=== PATIENT | male | born 1965 | race Caucasian/White ===

== ENCOUNTER → 2019-04-08 16:28 | Outpatient (CLI) | payer OTHER, SELFPAY ==
--- NOTE | ~2019-04-08 | XR_ITS ---
EXAMINATION: XR knee RT min 4V EXAM DATE: 04/08/2019 17:11 INDICATION: Right knee pain since fall one month ago. Initial encounter. TECHNIQUE: Right knee frontal, crosstable lateral, orthogonal oblique projections for interpretation . There is no prior study for comparison. FINDINGS: No evidence osteochondral defect or joint body in the right knee joint. There is mild tri compartmental primary osteoarthritis. Thigh varicose vein medially, probably the greater saphenous v ein, and another dilated vein along the lateral aspect of the calf. There are no acute fractures or d islocations identified. There is no subcutaneous gas. There are no radiopaque foreign bodies. IMPRESSION: 1. Mild right knee osteoarthritis. 2. Varicosities. Reviewed, dictated and finalized at location A. STORAGE WORKER
--- NOTE | ~2019-04-08 | XR_ITS ---
EXAMINATION: XR lumbar spine 2-3V EXAM DATE: 04/08/2019 17:11 INDICATION: Low back pain. Fall one month ago. TECHNIQUE: Lumber spine frontal, lateral, lateral L5-S1 projections for interpretation. There is no prior study for comparison. FINDINGS: Mild to moderate disc disease at L3-4 and L4-5, mild at L5-S1. There is mild lumbar facet arthropathy. Paraspinal soft tissue is unremarkable. Sacrum, sacroiliac joints, sacral arcuate lines are intact. IMPRESSION: Mild to moderate mid lumbar disc disease, mild lumbar facet arthropathy. Reviewed, dictated and finalized at location A. [employer]ER IMPRESSION: Mild to moderate mid lumbar disc disease, mild lumbar facet arthro kelly.
== END ==
LOC: EXPCRAD 16:33
PROVIDERS: PCP Emergency Medicine; Visit Provider Emergency Medicine
DX: G89.29 Other chronic pain (principal); M51.36 Other intervertebral disc degeneration, lumbar region; M17.11 Unilateral primary osteoarthritis, right knee; I83.91 Asymptomatic varicose veins of right lower extremity
CPT/HCPCS: 72100; 73564

== ENCOUNTER → 2019-09-15 09:32 | Outpatient (CLI) | payer OTHER, SELFPAY ==
--- NOTE | ~2019-09-15 | XR_ITS ---
EXAMINATION: XR chest 2V 09/15/2019 10:03 INDICATION: Wheezing. Dyspnea. PROCEDURE: 2 view chest COMPARISON: No prior studies for comparison. FINDINGS: There is a nodular density left upper thorax overlying the third rib anteriorly. No focal p neumonia or edema. The cardiomediastinal silhouette is within normal limits. There are no pleural ef fusions. There is no pneumothorax suspected. IMPRESSION: 1: Nodular density left upper thorax. Follow-up CT chest recommended. 2: No acute cardiopulmonary disease. Reviewed, dictated and finalized at location A.
== END ==
LOC: EXPCRAD 09:43
PROVIDERS: PCP Emergency Medicine; Visit Provider Emergency Medicine
DX: R06.02 Shortness of breath (principal); R06.2 Wheezing; R91.1 Solitary pulmonary nodule
CPT/HCPCS: 71046

== ENCOUNTER 2019-09-23 15:13 | Outpatient (CLI) | payer OTHER, SELFPAY ==
--- NOTE | ~2019-09-23 | CT_ITS ---
EXAMINATION: CT chest wo con DATE: 09/23/2019 15:52 INDICATION: Left thorax nodule TECHNIQUE: Computed tomography (CT) of the chest was performed without intravenous contrast. The dose -length product was 174.51 mGy-cm. Automated exposure control and iterative reconstruction technique were employed. COMPARISON: Chest x-ray dated 09/15/2019 FINDINGS: No thoracic lymphadenopathy. No significant pleural or pericardial effusion. Heart size nor mal. Mild atherosclerosis. No endobronchial lesions. Nodular density seen on prior chest x-ray not ap preciated on the current study, likely artifactual secondary to superimposition of overlying structur es. No focal airspace consolidation. No pneumothorax. No endobronchial lesions. IMPRESSION: 1. No pulmonary nodules/masses. No acute cardiopulmonary disease. Reviewed, dictated and finalized at location A.
== END 2019-09-23 15:14 | disposition home or self-care (01) ==
PROVIDERS: PCP Emergency Medicine; Visit Provider Emergency Medicine
DX: R91.1 Solitary pulmonary nodule (principal)
CPT/HCPCS: 71250

== ENCOUNTER 2020-03-13 15:49 | Outpatient (CLI) | payer OTHER, SELFPAY ==
--- NOTE | ~2020-03-13 | US_ITS ---
US venous doppler LE RT DATE: 03/13/2020 16:43 INDICATION: Right leg pain TECHNIQUE: Real-time and color flow imaging and Doppler analysis of the veins of the right lower extr emity COMPARISON: None FINDINGS: The right greater saphenous vein is patent. There is spontaneous and phasic flow and normal augmentation and color flow signal and normal compression of the deep veins of the right lower extre mity. IMPRESSION: No evidence of deep venous thrombosis of right leg Reviewed, dictated and finalized at Location A. Reviewed, dictated and finalized at location A. GE MATE
== END 2020-03-13 15:50 | disposition home or self-care (01) ==
LOC: ANHIMG 16:00
PROVIDERS: PCP Emergency Medicine; Visit Provider Emergency Medicine
DX: M79.661 Pain in right lower leg (principal)
CPT/HCPCS: 93971

== ENCOUNTER 2021-12-25 09:16 | Emergency (ER) | payer OTHER, BC, SELFPAY ==
[2021-12-25 09:29] VITALS: BP 148/88; PULSE 84; RESP 16; TEMP 37.2; O2SAT 99
--- NOTE | 2021-12-25 09:42 | ED.EYEPROB ---
HPI - Eye Problem General Chief complaint: Eye Problems Stated complaint: Right Eye Pain Time Seen by Provider: 12/25/21 09:42 Source: patient Mode of arrival: ambulatory Limitations: no limitations History of Present Illness HPI Narrative: 56-year-old male presented for complaint of right eye pain and redness after injury at work yesterday. He states a tumbler cup fell off the top of the refrigerator and struck the right eye. He states something poked the eye. He reports blurry vision at the onset with red swollen eye. He states it was a dirty cup and he wiped the soda out of his eye. He states the right eye is red but he denies any visual changes, drainage, photophobia, foreign body sensation, headaches or dizziness. MD chief complaint: eye pain Related Data Allergies Allergy/AdvReac Type Severity Reaction Status Date / Time erythromycin base Allergy Rash Verified 12/25/21 09:49 Review of Systems Review of Systems: CONSTITUTIONAL: Denies body aches, fever, chills EYES:Endorses swelling, redness and pain to right eye ENT: Denies rhinorrhea, congestion, sore throat, or otalgia. CARDIOVASCULAR: Denies chest pain, palpitations RESPIRATORY: Denies cough or dyspnea. GASTROINTESTINAL: Denies abdominal pain, nausea, vomiting, or diarrhea. SKIN: Denies rash, itching, or wounds. MUSCULOSKELETAL: Denies back pain, joint pain, or myalgia. NEUROLOGIC: Denies headache, numbness, tingling, or weakness. All systems reviewed & are unremarkable except as noted in HPI and below PMFSH Comments At time of signature, I have reviewed and agree with nursing past medical, surgical, social and family history unless otherwise noted. Please see nursing chart for further information. There is no relevant family history pertinent to the presenting complaint Exam Narrative: GENERAL: Well-appearing HEAD: Normocephalic, atraumatic. EYES: Right eye conjunctival/ciliary redness at 7&8 o'clock position, no eye lid swelling or drainage; PERRLA EOMI. Lid eversion showed no fb. ENT: Mucous membranes pink and moist. CHEST: Clear to auscultation. HEART: Regular rate and rhythm. ABDOMEN: Soft, nontender, nondistended SKIN: Warm, dry, no rash. Normal skin turgor. NEURO: No focal deficits. Alert and oriented x3 Course Course Emergency Course: Patient is aware of diagnosis, understands and agrees to treatment plan. Anticipatory guidance given. Patient agrees to follow-up as directed and is aware of reasons to seek care at the emergency department. Portions of this record may have been created with voice recognition software Level of Care: Express Care Visit Vital Signs Vital signs: Vital Signs Temperature 99.0 F 12/25/21 09:29 Pulse Rate 84 12/25/21 09:29 Respiratory Rate 16 12/25/21 09:29 Blood Pressure 148/88 H 12/25/21 09:29 Pulse Oximetry 99 12/25/21 09:29 Oxygen Delivery Room Air 12/25/21 09:29 Temperature 99.0 F 12/25/21 09:29 Pulse Rate 84 12/25/21 09:29 Respiratory Rate 16 12/25/21 09:29 Blood Pressure 148/88 H 12/25/21 09:29 Pulse Oximetry 99 12/25/21 09:29 Oxygen Delivery Room Air 12/25/21 09:29 Procedures FB Removal Eye Foreign Body #1: Location: eye (R) Topical anesthetic used: tetracaine Evidence of corneal penetration: Yes (corneal abrasion right eye 7-8o'clock position) Technique: eye wash bottle Procedure performed under: other (browning lamp) Patient tolerated procedure: well and no complications Foreign Body Removal Narrative: No FB. MDM - Eye Problem MDM Narrative Medical decision making narrative: Corneal abrasion noted on browning lamp exam. Advised supportive measures and signs/symptoms to go to the ER. Pt is appropriate for outpt treatment and f/u. Differential Diagnosis Differential diagnosis: Likely corneal abrasion, conjunctivitis, acute iritis and other Discharge Plan Discharge Clinical Impression: Corneal
[2021-12-25] MEDS: TETRACAINE HCL 0.5% OPHTH SOLN 4 ML BTL 1 DROP EACH EYE (09:50)
[2021-12-25] MEDS: FLUORESCEIN SOD 1 MG/STRIP EACH EYE (09:50)
[2021-12-25] MEDS: DACRIOSE EYE IRRIGATION 118 ML BOTTLE 100 ML RIGHT EYE (09:50)
== END 2021-12-25 10:30 | disposition home or self-care (01) ==
PROVIDERS: Emergency Provider Nurse Practitioner Family
DX: S05.01XA Injury of conjunctiva and corneal abrasion without foreign body, right eye, initial encounter (principal); W20.8XXA Other cause of strike by thrown, projected or falling object, initial encounter
CPT/HCPCS: 99213; A9270; G0463